=== PATIENT | female | born 1975 | race Caucasian/White ===

== ENCOUNTER → 2017-02-22 | Outpatient (CLI) | payer BC | LOC: EDUNIT# 14:45 → RAD 14:45 | PROVIDERS: ATTEND Nurse Practitioner | DX: Z12.31 Encounter for screening mammogram for malignant neoplasm of breast (principal) | CPT/HCPCS: 77067 ==

== ENCOUNTER → 2017-03-02 | Outpatient (CLI) | payer BC ==
--- NOTE | 2017-03-02 18:13 | Diagnostic Imaging Report ---
CLINICAL INDICATION: Patient with menometrorrhagia. Patient having tubal ligation and ablation soon. EXAM: Transabdominal ultrasound of the pelvis. COMPARISON: None. FINDINGS: The uterus has normal echogenicity and configuration. There is echogenicity with posterior shadows in the region of the endometrium, likely related to patient's IUD which appears in good position. Uterus measures 8.1 cm x 4.3 cm x 3.2 cm. The endometrium measures 0.6 cm. There is a roughly 2.2 cm x 0.9 cm x 1.4 cm cyst involving the right ovary. Otherwise, both ovaries have normal physiological appearance and anatomical appearance with Doppler flow seen associated with them. The right and left ovaries measure 3.2 cm x 3.0 cm x 1.9 cm and 2.3 cm x 1.8 cm x 2.7 cm, respectively. There is no significant free fluid in the pelvis. IMPRESSION: 1: Likely small physiological cyst involving the right ovary. Otherwise, unremarkable transabdominal ultrasound of the pelvis. 2: IUD is seen within the endometrial region which appears in good position. Dictated by: Dictated on workstation # [id number]
== END ==
LOC: RAD 14:26
PROVIDERS: ATTEND Obstetrics & Gynecology
DX: N92.1 Excessive and frequent menstruation with irregular cycle (principal); Z97.5 Presence of (intrauterine) contraceptive device
CPT/HCPCS: 76856

== ENCOUNTER 2017-03-20 06:11 | Outpatient (CLI) | payer BC ==
[~2017-03-20] VITALS: Ht 157.5 cm; Wt 59.9 kg
[2017-03-20] MEDS ORDERED: MONT10TA24 PO (11:39)
[2017-03-20] MEDS ORDERED: NF-XOP-HFA IH (11:39)
[2017-03-20] MEDS ORDERED: CETI10TA17 PO (11:39)
== END 2017-03-20 11:46 ==
LOC: PREOP 06:11
PROVIDERS: ATTEND Obstetrics & Gynecology
DX: Z01.818 Encounter for other preprocedural examination (principal); N92.1 Excessive and frequent menstruation with irregular cycle

== ENCOUNTER 2017-03-24 11:29 | Day surgery (SDC) | payer BC ==
[~2017-03-24] VITALS: Ht 157.5 cm; Wt 59.9 kg
[~2017-03-24 11:29] MED LIST: CETI10TA17 PO; MONT10TA24 PO; NF-XOP-HFA IH
[2017-03-24 11:59] LABS: BASOPHILS % (AUTO) 0 % (0-10); EOSINOPHILS # (AUTO) 0.1 10^3/uL (0.0-0.3); EOSINOPHILS % (AUTO) 1 % (0-10); HEMATOCRIT 39 % (35-52); HEMOGLOBIN 13.8 G/DL (11.5-16.0); LYMPHOCYTES # (AUTO) 2.7 X 10^3 (1.0-4.0); LYMPHOCYTES % (AUTO) 38 % (12-44); MEAN CORPUSCULAR HEMOGLOBIN 34 PG (25-34); MEAN CORPUSCULAR HGB CONC 36 G/DL (32-36); MEAN CORPUSCULAR VOLUME 96 FL (80-99); MEAN PLATELET VOLUME 9.8 FL (7.4-10.4); MONOCYTES # (AUTO) 0.7 X 10^3 (0.0-1.0); MONOCYTES % (AUTO) 11 % (0-12); NEUTROPHILS # (AUTO) 3.5 X 10^3 (1.8-7.8); NEUTROPHILS % (AUTO) 50 % (42-75); PLATELET COUNT 227 10^3/uL (130-400); RED BLOOD COUNT 4.05 10^6/uL (4.35-5.85); RED CELL DISTRIBUTION WIDTH 11.7 % (10.0-14.5)
[2017-03-24] MEDS ORDERED: ONDANSETRON 4 MG/2 ML (SDV) Z0FRAN ONE (13:13)
[2017-03-24] MEDS ORDERED: proPOfol 200 MG/20 ML (DIPRIVAN) VIAL IV ONE (13:13)
[2017-03-24] MEDS ORDERED: LIDOCAINE PF 2% 5 ML (XYLOCAINE) VIAL ONE (13:13)
[2017-03-24] MEDS ORDERED: fentaNYL INJECTION 100 MCG/2 ML AMP ONE (13:13)
[2017-03-24] MEDS ORDERED: SEVOFLURANE (ULTANE) 15 ML INHAL SOLN ONE ×2 (13:13→13:14)
[2017-03-24] MEDS ORDERED: ROCURONIUM 50 MG/5 ML (ZEMURON) VIAL IV ONE (13:13)
[2017-03-24] MEDS ORDERED: DEXAMETHASONE 10 MG/ML (DECADRON) 1 ML VIAL ONE (13:13)
[2017-03-24] MEDS ORDERED: MIDAZOLAM 2 MG/2 ML (VERSED) VIAL ONE (13:14)
[2017-03-24] MEDS ORDERED: metroNIDAZOLE 500 MG/100 ML IVPB (PRE-MIX) IV ONE (13:15)
[2017-03-24] MEDS ORDERED: ceFAZolin 1 GM/NS 50 ML IVPB IV ONE ×2 (13:15)
--- NOTE | 2017-03-24 13:19 | Progress Note-Pre Operative ---
Pre-Operative Progress Note H&P Reviewed The H&P was reviewed, patient examined and no changes noted. Time Seen by Provider: 13:10 Date H&P Reviewed: Mar 24, 2017 Time H&P Reviewed: 07:00 Pre-Operative Diagnosis: menorrhagia, BTB, risk of ovarian cancer with desire of risk reduction TANYA FERRIS DO Mar 24, 2017 13:19
[2017-03-24] MEDS ORDERED: BUPIVACAINE 0.5% 30 ML (SENSORCAINE) VIAL ONE (14:12)
[2017-03-24] MEDS ORDERED: LACTATED RINGERS 1,000 ML IV PRN (14:19)
[2017-03-24] MEDS ORDERED: ceFAZolin INJECTION 1,000 MG in NS (IVPB) 50 ML IV ONE (14:30)
[2017-03-24] MEDS ORDERED: metroNIDAZOLE 500MG/100ML IVPB 100 ML IV ONE (14:30)
[2017-03-24] MEDS ORDERED: KETOROLAC 30 MG/ML VIAL ONE (15:00)
[2017-03-24 15:09] VITALS: BP 113/73
--- NOTE | 2017-03-24 15:14 | Operative Report ---
Operative Report Date of Procedure/Surgery Mar 24, 2017 Surgeon (s) TANYA FERRIS DO Flight Radio Officer (s): TEDDY Moffett Post-Operative Diagnosis Same Procedure Performed Novasure endometrial ablation, laparoscopy with right ovarian cystectomy, risk reducing salpingectomy Description of Procedure Anesthesia Type: General Estimated blood loss (mL): minimal Specimen(s) collected/removed endometrial curettings, bilateral tubes Description of the Procedure With informed consent, the patient was taken to the operating room and general anesthetic was found to be adequate. She was prepped and draped in the usual sterile fashion in the dorsal lithotomy position. The bladder was drained of clear yellow urine with a straight catheter. A bivalved speculum was placed in the vagina and the cervix was grasped with a tenaculum. There was a small amount of blood in the vaginal vault consistent with known menses. LMP was 03/22. There was an IUD in situ and this was removed by grasping with a ring forceps. There was no problem associated with this. The cervix was grasped with a sharptoothed tenaculum. The cervix was gently dilated with Sahni dilators. The uterus was then sounded with a sure sound. Cavity length of 5.8 cm. I then did a gentle D&C and sent the endometrial curettings for pathology. I then inserted the NovaSure device and took appropriate measurements. Cavity length of 5.8 cavity width 3.0. A compliance test was now done by inserting a puff of CO2 gas. Once the compliance test was completed the NovaSure device was activated. The procedure was started with a power of 96. The complete ablation was 63 seconds. Once there was complete ablation, the device halted and the device was removed without difficulty. The tenaculum was removed from the cervix. There was minimal amount of bleeding. I now placed an Allis on the cervix to provide a means of manipulation. Attention was now turned to the abdomen where the umbilicus was injected with 0.5 percent Marcaine. A 1 cm incision was now made. I then inserted a varies needle and intra-abdominal placement was confirmed with saline drop test and a drop in pressure. I then insufflated the abdomen to a maximum pressure of 15 mmHg. I now inserted a 5 mm trocar under direct visualization with an Optiview. Intra-abdominal placement was confirmed. I noted a survey of the [place] revealing the above-mentioned findings. There was a minimal adhesions of the bowel to the left tubal complex and this did not need to be taken down. I now placed a 5 mm incision and 5 mm trocar under direct visualization of the left lower quadrant lateral to the rectus muscles and avoiding the inferior epigastric vessels. I placed another trocar in this left lower quadrant approximately 4 cm superior to this. I now placed a Harmonic scalpel and a grasper and elevated bilateral tubes I incised along the mesial salpinx and the cornual portion of the tube thus removing the entire tube. There was good hemostasis. I replaced the 5 mm trocar at the umbilicus with a 10/12 mm port and removed both tubes through this and these were sent for pathology. There was a cyst on the right ovary and this was fulgurated with the harmonic scalpel. There was good hemostasis noted. The pelvis was now irrigated. There was no bleeding noted. The instruments and the gas were removed from the abdomen. The umbilical fascial incision was closed with 0 Vicryl. The skin was closed with 4-0 Monocryl. Dermabond was placed. Sponge, lap, needle and instrument counts were correct 2. Bandages were placed. The Allis was removed from the cervix. The patient was awakened and taken to the recovery room in a stable condition. She was given Ancef and Flagyl preoperatively. Toradol IV was given postoperatively. Findings of the Procedure normal appearing endometrium, IUD in place and removed without difficulty normal tubes with peritubal cysts, right ovarian cyst Cavity 5.8 x 3.0 cm power 96 63 seconds Allergies and Home Medications Allergies Coded Allergies: No Known Drug Allergies (Unverified , 03/20/17) Home Medications Cetirizine HCl 10 Mg Tablet, 10 MG PO HS, (Reported) Levalbuterol Tartrate 15 Gm Hfa.aer.ad, 1-2 PUFF IH Q4H PRN for WHEEZING, ( Reported) Montelukast Sodium 10 Mg Tablet, 10 MG PO DAILY, (Reported) TANYA FERRIS DO Mar 24, 2017 15:14
[2017-03-24] MEDS ORDERED: KETOROLAC 30 MG/ML VIAL IVP ONE (15:15)
[2017-03-24] MEDS ORDERED: morphine INJ 10 MG/ML 1ML (SYR OR VIAL) IVP PRN (15:15)
[2017-03-24] MEDS ORDERED: ONDANSETRON 4 MG/2 ML (SDV) Z0FRAN IVP PRN (15:15)
[2017-03-24] MEDS ORDERED: HYDROcodone/APAP 5 MG/325 MG (LORTAB) TAB PO PRN (15:15)
[2017-03-24] MEDS ORDERED: ACHD5005 PO (15:16)
[2017-03-24] MEDS ORDERED: IBUP-1773 PO (15:16)
--- NOTE | 2017-03-24 15:18 | Discharge Inst-Women's Service ---
Discharge Inst-Women's Serv Depart Medication/Instructions New, Converted or Re-Newed RX: RX on Chart Instructions no heavy lifting (over 25 lbs) until cleared nothing in vagina until cleared no driving for 24 hours Final Diagnosis menorrhagia right ovarian cyst risk of ovarian cancer with rr salpingectomy Consults/Follow Up Additional Follow Up: Yes (1-2 weeks for incision check) Activity Activity: Activity as Tolerated Driving Instructions: No Driving for 24 Hours NO SMOKING: NO SMOKING Nothing Inside Vagina: No Douching, No [place], No Tampons Diet Discharge Diet: No Restrictions Symptoms to Report to DrNorman: Swelling Increased, Bleeding Excessive, Pain Increased, Fever Over 101 Degrees F, Vaginal Bleeding Increase, Vaginal Discharge Foul expect spotting for up to 10 days. Expect increase in vaginal discharge 10 days or so after surgery. For Any Problems or Questions: Contact Your Physician Skin/Wound Care Infection Signs and Symptoms: Increased Redness, Foul Odor of Wound, Increased Drainage, Skin Itchy or Has a Rash, Increased Swelling, Temperature Above 101 F Operative Area Clean and Dry: Do Not Remove Bandage (May removed bandage d 3 or if wet or soiled), Keep Incision Clean/Dry Stitches/Deepali/Dermabond: Dermabond Bathing Instructions: TANYA Leung DO Mar 24, 2017 15:18
[2017-03-24] MEDS: MEPERIDINE (DEMEROL) INJ 50 MG/ML IVP PRN ×2 (15:25→15:40)
[2017-03-24 16:15] VITALS: BP 98/56
[2017-03-24 16:45] VITALS: BP 98/65
[2017-03-24 17:15] VITALS: BP 109/72
[2017-03-24 17:45] VITALS: BP 109/72
[2017-03-24] MEDS ORDERED: IBUPROFEN 800 MG (MOTRIN) TAB PO SCH (18:00)
== END 2017-03-24 17:45 | disposition home or self-care (01) ==
LOC: SDC 11:29
PROVIDERS: ATTEND Obstetrics & Gynecology
DX: N92.1 Excessive and frequent menstruation with irregular cycle (principal); N83.8 Other noninflammatory disorders of ovary, fallopian tube and broad ligament; N83.201 Unspecified ovarian cyst, right side; J45.909 Unspecified asthma, uncomplicated; Z79.899 Other long term (current) drug therapy
CPT/HCPCS: 36415; 84703; 85025; 87081

== ENCOUNTER 2017-04-26 14:00 | Outpatient (RCR) | payer BC ==
[~2017-04-26 14:00] MED LIST changes: +ACHD5005 PO; +IBUP-1773 PO
== END 2017-05-09 | disposition home or self-care (01) ==
PROVIDERS: ATTEND Chiropractor
DX: M46.1 Sacroiliitis, not elsewhere classified (principal); M53.3 Sacrococcygeal disorders, not elsewhere classified

== ENCOUNTER 2017-07-27 10:06 | Outpatient (RCR) | payer BC | END 2017-08-08 | disposition home or self-care (01) | PROVIDERS: ATTEND Chiropractor | DX: M46.1 Sacroiliitis, not elsewhere classified (principal); M53.3 Sacrococcygeal disorders, not elsewhere classified ==

== ENCOUNTER → 2017-11-10 | Outpatient (RCR) | payer BC | END | disposition home or self-care (01) | PROVIDERS: ATTEND Chiropractor | DX: M46.1 Sacroiliitis, not elsewhere classified (principal); M53.3 Sacrococcygeal disorders, not elsewhere classified ==

== ENCOUNTER 2018-04-11 08:01 | Outpatient (RCR) | payer BC | END 2018-05-23 | disposition home or self-care (01) | PROVIDERS: ATTEND Chiropractor | DX: M46.1 Sacroiliitis, not elsewhere classified (principal); M53.3 Sacrococcygeal disorders, not elsewhere classified ==

== ENCOUNTER 2019-01-02 16:39 | Outpatient (RCR) | payer BC | END 2019-01-02 18:00 | disposition home or self-care (01) | DX: M53.3 Sacrococcygeal disorders, not elsewhere classified (principal) ==

== ENCOUNTER → 2019-09-20 | Outpatient (CLI) | payer BC ==
[~2019-09-20] MED LIST changes: -MONT10TA24 PO; +MONT10TA26 PO
--- NOTE | 2019-09-20 10:23 | Diagnostic Imaging Report ---
INDICATION: Routine screening. COMPARISON is made with prior mammograms from 02/22/2017 and 06/10/2014. 2-D and 3-D bilateral screening mammography was performed with CAD. Both breasts remain heterogeneously dense, limiting the sensitivity of mammography. No dominant mass or malignant appearing microcalcifications are seen. Axillae are unremarkable. IMPRESSION: BI-RADS Category 1. No mammographic features suspicious for malignancy are identified. ACR BI-RADS Category 1: Negative. Result letter will be mailed to the patient. Note: At least 10% of breast cancer is not imaged by mammography. Dictated by: Dictated on workstation # [id number]
== END ==
LOC: RAD 07:40
PROVIDERS: ATTEND Surgery
DX: Z12.31 Encounter for screening mammogram for malignant neoplasm of breast (principal)
CPT/HCPCS: 77063; 77067

== ENCOUNTER 2019-10-18 15:52 | Outpatient (RCR) | payer BC | END 2019-10-23 | disposition home or self-care (01) | PROVIDERS: ATTEND Chiropractor | DX: M25.551 Pain in right hip (principal); M54.5 Low back pain; J45.909 Unspecified asthma, uncomplicated ==

== ENCOUNTER 2019-11-29 14:30 | Outpatient (RCR) | payer BC ==
[~2019-11-29 14:30] MED LIST changes: -MONT10TA26 PO; +MONT10TA97 PO
== END 2020-02-20 | disposition home or self-care (01) ==
PROVIDERS: ATTEND Chiropractor
DX: M54.5 Low back pain (principal); M25.551 Pain in right hip; M25.561 Pain in right knee; J45.909 Unspecified asthma, uncomplicated; M62.89 Other specified disorders of muscle

== ENCOUNTER 2020-05-08 15:29 | Outpatient (RCR) | payer BC ==
[~2020-05-08 15:29] MED LIST changes: +MONT10TA32 PO; -MONT10TA97 PO
== END 2020-05-21 | disposition home or self-care (01) ==
PROVIDERS: ATTEND Chiropractor
DX: M54.5 Low back pain (principal); M25.551 Pain in right hip; M25.561 Pain in right knee

== ENCOUNTER 2020-07-24 10:52 | Outpatient (RCR) | payer BC | END 2020-08-27 | disposition home or self-care (01) | PROVIDERS: ATTEND Chiropractor | DX: M25.551 Pain in right hip (principal); M25.561 Pain in right knee; M54.5 Low back pain ==

== ENCOUNTER 2020-11-20 09:18 | Outpatient (RCR) | payer BC | END 2020-11-26 | disposition home or self-care (01) | PROVIDERS: ATTEND Chiropractor | DX: M25.551 Pain in right hip (principal); M25.561 Pain in right knee; M54.5 Low back pain ==

== ENCOUNTER 2021-03-11 15:56 | Outpatient (RCR) | payer BC ==
[~2021-03-11 15:56] MED LIST changes: +MONT-40 PO; -MONT10TA32 PO
== END 2021-03-12 | disposition home or self-care (01) ==
PROVIDERS: ATTEND Chiropractor
DX: M25.551 Pain in right hip (principal); M25.561 Pain in right knee

== ENCOUNTER 2021-04-02 15:08 | Outpatient (RCR) | payer BC | END 2021-04-12 | disposition home or self-care (01) | PROVIDERS: ATTEND Chiropractor | DX: M25.551 Pain in right hip (principal); M25.561 Pain in right knee ==

== ENCOUNTER 2021-04-30 15:42 | Outpatient (RCR) | payer BC | END 2021-05-10 | disposition home or self-care (01) | PROVIDERS: ATTEND Chiropractor | DX: M25.551 Pain in right hip (principal); M25.561 Pain in right knee ==

== ENCOUNTER 2021-06-11 09:23 | Outpatient (RCR) | payer BC | END 2021-07-10 | disposition home or self-care (01) | PROVIDERS: ATTEND Chiropractor | DX: M25.551 Pain in right hip (principal); M25.561 Pain in right knee ==

== ENCOUNTER 2021-07-23 16:17 | Outpatient (RCR) | payer BC | END 2021-08-10 | disposition home or self-care (01) | PROVIDERS: ATTEND Chiropractor | DX: M25.551 Pain in right hip (principal); M25.561 Pain in right knee; J45.909 Unspecified asthma, uncomplicated ==

== ENCOUNTER 2021-09-10 15:12 | Outpatient (RCR) | payer BC | END 2021-10-10 | disposition home or self-care (01) | PROVIDERS: ATTEND Chiropractor | DX: M25.551 Pain in right hip (principal); M25.561 Pain in right knee; J45.909 Unspecified asthma, uncomplicated ==

== ENCOUNTER 2021-11-05 15:22 | Outpatient (RCR) | payer BC | END 2021-11-10 | disposition home or self-care (01) | DX: M25.551 Pain in right hip (principal); M25.561 Pain in right knee; J45.909 Unspecified asthma, uncomplicated ==

== ENCOUNTER → 2021-12-10 | Outpatient (RCR) | payer BC | DX: M25.551 Pain in right hip (principal); M25.561 Pain in right knee; J45.909 Unspecified asthma, uncomplicated; M25.562 Pain in left knee ==

== ENCOUNTER 2021-12-17 15:09 | Outpatient (RCR) | payer BC | END 2022-01-10 | disposition home or self-care (01) | PROVIDERS: ATTEND Chiropractor | DX: M25.561 Pain in right knee (principal); M25.562 Pain in left knee; M25.551 Pain in right hip; J45.909 Unspecified asthma, uncomplicated ==

== ENCOUNTER 2022-01-28 15:52 | Outpatient (RCR) | payer BC | END 2022-02-09 | disposition home or self-care (01) | PROVIDERS: ATTEND Chiropractor | DX: M25.561 Pain in right knee (principal); M25.551 Pain in right hip; J45.909 Unspecified asthma, uncomplicated ==

== ENCOUNTER 2022-02-11 13:42 | Outpatient (RCR) | payer BC | END 2022-03-12 | disposition home or self-care (01) | PROVIDERS: ATTEND Chiropractor | DX: M25.561 Pain in right knee (principal); M25.551 Pain in right hip ==

== ENCOUNTER 2022-04-01 11:30 | Outpatient (RCR) | payer BC | END 2022-04-12 | disposition home or self-care (01) | PROVIDERS: ATTEND Chiropractor | DX: M25.561 Pain in right knee (principal); M25.551 Pain in right hip; J45.909 Unspecified asthma, uncomplicated ==

== ENCOUNTER 2022-05-06 08:56 | Outpatient (RCR) | payer BC | END 2022-05-10 | disposition home or self-care (01) | PROVIDERS: ATTEND Chiropractor | DX: M25.561 Pain in right knee (principal); M25.551 Pain in right hip; J45.909 Unspecified asthma, uncomplicated ==

== ENCOUNTER → 2022-06-10 | Outpatient (RCR) | payer BC | END | disposition home or self-care (01) | PROVIDERS: ATTEND Chiropractor | DX: M25.561 Pain in right knee (principal); M25.551 Pain in right hip; J45.909 Unspecified asthma, uncomplicated ==

== ENCOUNTER 2022-07-08 15:06 | Outpatient (RCR) | payer BC | END 2022-07-10 | disposition home or self-care (01) | PROVIDERS: ATTEND Chiropractor | DX: M25.561 Pain in right knee (principal); M25.551 Pain in right hip; J45.909 Unspecified asthma, uncomplicated ==

== ENCOUNTER 2022-08-05 14:29 | Outpatient (RCR) | payer BC | END 2022-08-10 | disposition home or self-care (01) | PROVIDERS: ATTEND Chiropractor | DX: M25.561 Pain in right knee (principal); M25.551 Pain in right hip; J45.909 Unspecified asthma, uncomplicated ==

== ENCOUNTER 2022-11-08 15:43 | Outpatient (RCR) | payer BC | END 2022-11-10 | disposition home or self-care (01) | PROVIDERS: ATTEND Chiropractor | DX: M25.561 Pain in right knee (principal); M25.551 Pain in right hip ==

== ENCOUNTER 2023-01-05 16:07 | Outpatient (RCR) | payer BC | END 2023-01-10 | disposition home or self-care (01) | PROVIDERS: ATTEND Chiropractor | DX: M25.561 Pain in right knee (principal); M25.551 Pain in right hip ==